=== PATIENT | female | born 1960 | race Caucasian/White ===

== ENCOUNTER 2019-05-04 12:19 | Observation (INO) | payer OTHER ==
[2019-05-04] MEDS ORDERED: Ondansetron INJ* 2 MG/ML VIAL IV ONE ×2 (13:15→16:42)
[2019-05-04] MEDS ORDERED: NS 0.9% 1000 ML** 1,000 ML IV ONE (13:15)
--- NOTE | 2019-05-04 13:16 | ED ---
Abdominal Pain/Female - HPI Summary HPI Summary: 59 year old F referred to [facility] by her primary care provider with a chief complaint of worsening RLQ abdominal pain radiating to her back rated 8/10 in severity that started at last evening. Symptoms aggravated by movement and position changes. Symptoms alleviated by nothing. Patient reports abdominal bloating and nausea since yesterday. No vomiting. Pt states mild back pain. Patient denies fever, dysuria, vaginal discharge, vaginal itching, vaginal odor. Patient has not treated the pain with any medication prior to arrival. Last normal bowel movement was yesterday. Patient states she has been doing a keto diet since the end of January 2019 with 19 pound weight loss. Patients medication reviewed this visit. Medications reviewed - History of Current Complaint Chief Complaint: EDAbdPain Stated Complaint: ABDOMINAL PAIN PER PT Time Seen by Provider: 05/04/19 12:31 Hx Obtained From: Patient Onset/Duration: Lasting Hours - 9, Still Present Timing: Constant Severity Currently: Moderate Pain Intensity: 8 Pain Scale Used: 0-10 Numeric Location: Discrete At: RLQ Radiates: Yes Radiates to: Back Aggravating Factor(s): Movement, Other: - position changes Alleviating Factor(s): Nothing Associated Signs and Symptoms: Positive: Negative - fever, dysuria, vaginal discharge, vaginal itching, vaginal odor, Other: - abdominal bloating and nausea Allergies/Adverse Reactions: Allergies Allergy/AdvReac Type Severity Reaction Status Date / Time oxycodone Allergy Nausea And Verified 05/04/19 12:27 Vomiting Penicillins Allergy Rash And Verified 05/04/19 12:27 Itching Sulfa (Sulfonamide Allergy Rash And Verified 05/04/19 12:27 Antibiotics) Itching sulfamethoxazole Allergy Rash And Verified 05/04/19 12:27 [From Bactrim] Itching Tetracyclines Allergy Rash And Verified 05/04/19 12:27 Itching trimethoprim [From Bactrim] Allergy Rash And Verified 05/04/19 12:27 Itching Home Medications: Home Medications Budesonide/Formote 80/4.5(NF) [Symbicort 80/4.5 (NF)] 2 puff INH BID 05/04/19 [ History Confirmed 05/04/19] PMH/Surg Hx/FS Hx/Imm Hx Previously Healthy: No - lung cancer, wedge resection, ptx, Endocrine/Hematology History: Reports: Hx Thyroid Disease - HYPERPARATHYROID DISEASE Denies: Hx Diabetes Cardiovascular History: Denies: Hx Hypertension Respiratory History: Reports: Hx Asthma - JUST DX LAST WEEK WITH COMPLIANCE COORDINATOR, Hx Chronic Obstructive Pulmonary Disease (COPD), Hx Lung Cancer, Other Respiratory Problems/Disorders - RIGHT UPPER LOBECTOMY 06/14/15 GI History: Reports: Hx Gastroesophageal Reflux Disease - WELL CONTROLLED, Other GI Disorders - INDIGESTION SINCE DX WITH CANCER History: Denies: Hx Dialysis, Hx Renal Disease Musculoskeletal History: Reports: Hx Arthritis - NECK AND KNEES, 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 tonsillectomy. right upper lobectomy 06/14 [facility] [place]. colonoscopy Hx Anesthesia Reactions: No Infectious Disease History: No Infectious Disease History: Denies: Hx Clostridium Difficile, Hx Hepatitis, Hx Human Immunodeficiency Virus (HIV), Hx of Known/Suspected MRSA, Hx Shingles, Hx Tuberculosis, Hx Known/ Suspected VRE, Hx Known/Suspected VRSA, History Other Infectious Disease, Traveled Outside the [place] in Last 30 Days - Family History Known Family History: Positive: Non-Contributory Family History: NEG: Breast cancer - Social History Alcohol Use: Rare Alcohol Amount: 2-3 GLASSES OF WINE PER YEAR Hx Substance Use: No Substance Use Type: Reports: None Hx Tobacco Use: Yes Smoking Status (MU): Former Smoker Type: Cigarettes Amount Used/How Often: 1/2 PPD- 1 PPD FOR 25 YRS Length of Time of Smoking/Using Tobacco: 25 YRS Have You Smoked in the Last Year: Yes Review of Systems Negative: Fever Positive: Abdominal Pain - RLQ, Nausea, Other - abdominal bloating Genitourinary: Negative - vaginal discharge, vaginal itching, vaginal odor. Negative: dysuria All Other Systems Reviewed And Are Negative: Yes Physical Exam - Summary Physical Exam Summary: Vital Signs Reviewed: Yes A+Ox3, mild discomfort with movement, chills, no fever Eyes: Conjunctiva Clear, BRENDEN. EOM intact and full ENT: Hearing grossly normal TM x 2 clear, mmoist, uvula midline, no exudate, no erythema Neck: Positive: Supple Respiratory: Positive: No respiratory distress, No accessory muscle use + CTA throughout no w/r Cardiovascular: RRR nl s1, s2 no m/r CBT <2 sec abd soft Decreased BS, no cva, + TTP RLQ + Rovsign's, Pain increased with SLE Musculoskeletal Exam: LAZO x 4 without difficulty Strength Intact, ROM Intact Neurological: Positive: Alert, + sensation throughout Psychological: Positive: Normal Response To financial business analyst Skin: Positive: no rash, no ecchymosis Triage Information Reviewed: Yes Vital Signs On Initial Exam: Initial Vitals Temp Pulse Resp BP Pulse Ox 98.8 F 87 18 105/83 96 05/04/19 12:21 05/04/19 12:21 05/04/19 12:21 05/04/19 12:21 05/04/19 12:21 Vital Signs Reviewed: Yes Diagnostics - Vital Signs Vital Signs Temp Pulse Resp BP Pulse Ox 05/04/19 12:21 98.8 F 87 18 105/83 96 - Laboratory Result Diagrams: 05/04/19 13:36 05/04/19 13:36 Lab Statement: Any lab studies that have been ordered have been reviewed, and results considered in the medical decision making process. - CT Abdomen/Pelvis CT Interpretation Completed By: Radiologist Summary of CT Findings: 1. Acute appendicitis without evidence for periappendiceal abscess. Results discussed with Dr. Garrett 05/04/2019 4:09 PM EDT. ED physician has reviewed this report. Re-Evaluation - Re-Evaluation First Eval Re-Evaluation Time: 13:55 Comment: updated on lab results. pt is less nauseous. pt is drinking contrast. will check temperature because pt feels chills - APAP prn Second Eval Re-Evaluation Time: 16:09 Comment: spoke with Dr. Mcbride about CT Abd/Pel. pt has acute appendicitis. will page sugery Third Eval Re-Evaluation Time: 16:15 Comment: discussed CT scans with her. pt aware of acute appendicitis. pt has taken Keflex in the past with no problems and no reactions - will Cefepime, Flagyl. pt requesting pain meds Abdominal Pain Fem Course/Dx - Course Course Of Treatment: Pt presents to with progressive RLQ pain x 36 hours + nausea, no fevers, + chills. VSS. RLQ pain with palp, + Rosvign's. Concern for appendicitis - will check labs, CT. Will give analgesia, antiemetics, IVF, reassess, labs - Diagnoses Provider Diagnoses: Acute appendicitis Discharge - Sign-Out/Discharge Documenting (check all that apply): Patient Departure - Admit All imaging exams completed and their final reports reviewed: Yes Patient Received Moderate/Deep Sedation with Procedure: No - Discharge Plan Condition: Good Disposition: ADMITTED TO [facility] - Billing Disposition and Condition Condition: GOOD Disposition: Admitted to [facility] - Attestation Statements Document Initiated by Mandiibe: Yes Documenting Scribe: Diane Thurston Provider For Whom Mandiibe is Documenting (Include Credential): Merle Garrett MD Scribe Attestation: Diane Butt, scribed for Merle Garrett MD on 05/06/19 at 1904. Scribe Documentation Reviewed: Yes Provider Attestation: The documentation as recorded by the Diane sawyer accurately reflects the service I personally performed and the decisions made by , Merle Garrett MD Status of Scribe Document: Viewed
[2019-05-04] MEDS ORDERED: Morphine 4 MG/ML VIAL (1 ml) 4 MG/ML VIAL IV ONE ×3 (13:18→18:24)
[2019-05-04] MEDS ORDERED: NS 0.9% 1000 ML** 1,000 ML IV SCH (13:30)
[2019-05-04 13:49] LABS: ABS Lymphocytes 1.6 10^3/ul (1.0-4.8); ABS Monocytes 0.8 10^3/ul (0-0.8); Eosinophil % 0.1 %; Hematocrit 43 % (35-47); Lymphocyte % 12.8 %; Mean Corpuscular HGB Conc 33 g/dL (31-36); Mean Corpuscular Hemoglobin 29 pg (27-31); Mean Corpuscular Volume 89 fL (80-97); Mean Platelet Volume 7.2 fL (7.4-10.4); Nucleated Red Blood Cells % 0.2; Platelet Count 236 10^3/uL (150-450); Red Blood Count 4.84 10^6 /uL (3.70-4.87); Red Cell Distribution Width 15 % (10-15); White Blood Count 12.4 10^3/uL (3.5-10.8)
[2019-05-04 14:06] LABS: Albumin 4.3 g/dL (3.2-5.2); Albumin/Globulin Ratio 1.7 (1-3); BUN/Creatinine Ratio 25.5 (8-20); Calcium 10.5 mg/dL (8.6-10.3); EGFR African American 73.5 (>60); EGFR Non-African American 60.7 (>60); Globulin 2.5 g/dL (2-4); Magnesium 1.8 mg/dL (1.9-2.7); Potassium 4.6 mmol/L (3.5-5.0); Total Bilirubin 0.3 mg/dL (0.2-1.0); Total Protein 6.8 g/dL (6.4-8.9)
[2019-05-04] MEDS ORDERED: Iohexol 300* (CONTRAST) 10 ML SDV IV ONE (14:13)
[2019-05-04 15:25] LABS: Urine Appearance Clear; Urine Bacteria 1+ (Absent); Urine Bilirubin Negative (Negative); Urine Blood 1+ (Negative); Urine Color Straw; Urine Glucose Negative (Negative); Urine Ketones Trace (Negative); Urine Nitrite Negative (Negative); Urine Protein Negative (Negative); Urine Red Blood Cell Trace(0-2/hpf) (Absent); Urine Specific Gravity 1.006 (1.010-1.030); Urine Squamous Epithelial Cell Present (Absent); Urine Urobilinogen Negative (Negative); Urine White Blood Cell 3+(>20/hpf) (Absent)
[2019-05-04] MEDS ORDERED: ceFAZolin 2 GM in NS PREMIX(*) 2 GM/100 ML BAG IVPB ONE (16:25)
[2019-05-04] MEDS ORDERED: metroNIDAZOLE IV 500 MG/100ML* 500 MG/100 ML BAG IVPB ONE (16:29)
[2019-05-04] MEDS ORDERED: Dexamethasone IV* 4 MG/ML 1 ML (4 MG) IV SLOW PU ONE (18:14)
[2019-05-04] MEDS ORDERED: Famotidine IV* 10 MG/ML 2 ML (20 mg) IV ONE (18:14)
[2019-05-04] MEDS ORDERED: Buffered Lidocaine 1% SYRIN* 1 ML/SYRINGE INTRADERM ONE (18:14)
[2019-05-04] MEDS ORDERED: DiMENhydriNATE IV* 50 MG/ML VIAL IV PUSH ONE (18:14)
[2019-05-04] MEDS ORDERED: PROCHLORPERAZINE INJ 5 MG/ML 2 ML VIAL IV PRN (18:17)
[2019-05-04] MEDS ORDERED: HYDROmorphone INJ1* 1 MG/ML SYRINGE IV PRN (18:17)
[2019-05-04] MEDS ORDERED: Naloxone* 0.4 MG/ML 1 ML VIAL IV PRN (18:17)
[2019-05-04] MEDS ORDERED: HYDROcodone/ACETAMIN 5-325 MG* 1 TAB PO PRN (18:17)
[2019-05-04] MEDS ORDERED: Scopolamine 1.5 mg* PATCH TRANSDERM PRN (18:17)
[2019-05-04] MEDS ORDERED: Lactated Ringers 1000 ML Bag* 1,000 ML IV SCH (19:00)
[2019-05-04] MEDS: Levalbuterol 0.63MG/3ML NEB* UNIT OF USE INH ONE ×2 (19:25→21:12)
--- NOTE | 2019-05-04 19:38 | HP ---
CC: Dr. Lubna Cortez, [facility] * ADMISSION HISTORY AND PHYSICAL: DATE OF ADMISSION: 05/04/19 ATTENDING SURGEON: Dr. Jose Enrique Gray.* (DICTATED BY TRE COLLADO) CHIEF COMPLAINT: Abdominal pain. HISTORY OF PRESENT ILLNESS: This is a 59-year-old female who beginning in the afternoon of 05/03/19 began to experience nausea. This progressed to widespread back and abdominal pain such that she was unable to get comfortable. She was up with the pain all night. It was accompanied by nausea and vomiting at home, but she has not had any vomiting today. She has not had any bowel changes. The baseline pain is steady, though she does have some colicky exacerbations which she relates to the upper abdomen. She does report feeling hot and chill but has not had a fever. She has not had any symptoms, i.e., increased frequency, dysuria, or hematuria. She has never had any similar symptoms. She has not had any prior abdominal surgeries. PAST MEDICAL HISTORY: COPD, lung cancer (status post right upper lobectomy 2014 ). She was also treated with chemotherapy. PAST SURGICAL HISTORY: Other surgeries include tubal ligation and bilateral eye amblyopia correction. No reported surgical or anesthesia complications. CURRENT MEDICATIONS: 1. Vitamin D 25,000 units once weekly. 2. Symbicort 80/4.5 two puffs b.i.d. DRUG ALLERGIES: OXYCODONE (nausea). PENICILLIN, SULFA, and TETRACYCLINE all cause rash and itchy, (she does tolerate Keflex). FAMILY HISTORY: Negative for anesthesia problems, bleeding, or clotting disorders. SOCIAL HISTORY: The patient lives with her father. She is not currently working. She quit smoking approximately 5 years ago. She drinks an average 2 drinks per week. REVIEW OF SYSTEMS: General: No recent constitutional symptoms or acute illnesses other than per the HPI. HEENT: No problems reported or additions to above. Cardiovascular: No chest pain, palpitations, history of heart murmur. Respiratory: COPD history and lung cancer history. No recent exacerbations of her COPD. Abdomen: Mildly distended. Bowel sounds are present and normoactive. Abdomen is soft and nontender with the exception of the right lower quadrant and right mid abdomen where she has moderately severe tenderness without guarding. No palpable masses or organomegaly. Genitalia/Rectal: Not done. Extremities: No edema. Neurological: Grossly intact. LABORATORY DATA: White blood cell count 12,400, hemoglobin 14. Differential is normal. Electrolytes, BUN, and creatinine are normal. Calcium is mildly elevated at 10.5 but is consistent with previous. Liver function tests are normal. Urinalysis is notable for 2+ leukocyte esterase, 1+ blood, and 3+ white blood cells. CT scan of the abdomen and pelvis with oral and IV contrast was personally reviewed showing multiple hepatic cysts, which are apparently unchanged from prior. Also noted is a 1 cm in diameter appendix with mild inflammatory periappendiceal stranding. There is no free air. No evidence of abscess. IMPRESSION: Most likely acute appendicitis. To be confirmed by Dr. Gray's exam. PLAN: Laparoscopic appendectomy pending Dr. Gray's review and exam. TRE COLLADO [id number]/[facility] #: [id number] [facility]PITAL[facility]
[2019-05-04] MEDS ORDERED: Levalbuterol 0.63MG/3ML NEB* UNIT OF USE INH ONE (20:47)
[2019-05-04] MEDS ORDERED: Scopolamine 1.5 mg* PATCH ONE (20:47)
[2019-05-04] MEDS ORDERED: Famotidine IV* 10 MG/ML 2 ML (20 mg) ONE (20:49)
[2019-05-04] MEDS ORDERED: Midazolam* 1 MG/ML 5 ML VIAL (5 MG) ONE (21:19)
[2019-05-04] MEDS ORDERED: fentaNYL* 50 MCG/ML 2 ML VIAL (100 MCG VIAL) ONE ×2 (21:19→23:48)
[2019-05-04] MEDS ORDERED: KETAMINE HCL* 50 MG/ML 10 ML VIAL ONE (21:19)
[2019-05-04] MEDS ORDERED: Clindamycin 900 MG/D5W BAG(*) 900 MG/50 ML BAG IVPB ONE (21:30)
[2019-05-04] MEDS ORDERED: Dexamethasone IV* 4 MG/ML 1 ML (4 MG) ONE (21:33)
[2019-05-04] MEDS ORDERED: Bupivacaine 0.25% W/EPI* 10 ML SDV ONE (21:50)
[2019-05-04] MEDS ORDERED: Ketorolac INJ* 30 MG/ML 1 ML VIAL ONE (23:08)
[2019-05-04] MEDS ORDERED: EPHEDrine (Pressors)* 50 MG/ML VIAL ONE (23:08)
[2019-05-04] MEDS ORDERED: Propofol* 10 MG/ML 20 ML BTL ONE (23:08)
[2019-05-04] MEDS ORDERED: Succinylcholine* 20 MG/ML 10 ML VIAL ONE (23:08)
[2019-05-04] MEDS ORDERED: Lidocaine 2% PF * 5 ML VIAL ONE (23:08)
[2019-05-04] MEDS ORDERED: Glycopyrrolate IV* 0.2 MG/ML 1 ML VIAL ONE (23:08)
[2019-05-04] MEDS ORDERED: Labetalol IV* 5 MG/ML 20 ML VIAL ONE (23:26)
--- NOTE | 2019-05-04 23:34 | OP ---
Operative Report - Blank - Operative Report Date of Operation: 05/04/19 Note: Pre-OP Diagnoses: acute appendicitis Post-op Diagnosis: same Procedure: Laparoscopic appendectomy Surgeon: Isaac Asst: none Anethesia: GETA EBL: minimal IVF: crystalloid Specimen: appendix Drains: none
[2019-05-04] MEDS: fentaNYL* 50 MCG/ML 2 ML VIAL (100 MCG VIAL) IV PRN ×3 (23:50→23:58)
[2019-05-05] MEDS: fentaNYL* 50 MCG/ML 2 ML VIAL (100 MCG VIAL) IV PRN (00:01)
--- NOTE | 2019-05-05 01:02 | OP ---
CC: Primary Care Doctor * DATE OF OPERATION: 05/03/19 - ROOM #350 DATE OF : 58 SURGEON: Jose Enrique Gray MD MANGLE ROLLER: None. ANESTHESIOLOGIST: Dr. Hess. ANESTHESIA: General. PRE-OP DIAGNOSIS: Acute appendicitis. POST-OP DIAGNOSIS: Acute appendicitis. OPERATIVE PROCEDURE: Laparoscopic appendectomy. ESTIMATED BLOOD LOSS: Minimal. FLUIDS: Crystalloid fluid given. SPECIMEN: Appendix. DRAINS: None. COMPLICATIONS: None. DESCRIPTION OF PROCEDURE: The patient was identified in the preoperative area. I met with her, discussed her case, and reviewed her chart. I discussed history and physical with partners. She was marked and a consent was signed after I outlined the details of the procedure of laparoscopic appendectomy, going over the risks, benefits, and alternatives. We spoke of the possible complications, which included not limited to bleeding, infection, bowel injury, injury to adjacent organs, and need for additional surgery, need for open procedure, and abscess formation. The patient was taken to the operating room, placed, placed on the operating table in supine position. Preoperative antibiotics were given. Sequential devices were placed in bilateral lower extremities. General anesthesia was induced. The patient's abdomen was prepped and draped in a standard surgical fashion and time- out was performed. An infra-umbilical incision was made. This was elevated and a Veress needle inserted into the abdominal cavity, which was then allowed to insufflate to a pressure of 15 mmHg. Veress needle was removed and a 12 mm optical trocar was inserted. The laparoscope was inserted. There was no evidence of injury from the trocar insertion. Review of the abdomen showed no enteric contents, no bleeding. A 5 mm trocar was placed in suprapubic area and a 5 mm in the left lower quadrant. Table was repositioned. Appendix was identified. This was clearly appendicitis with gangrenous changes. This was swept free from the small bowel and base of the appendix appeared intact and a window was made through this and a 45 mm grace SHANAE stapling device was fired through this. The mesoappendix was taken with a 45 mm suggs SHANAE stapling device. The appendix was placed in an endoscopic retrieval bag, brought out through the umbilical port site. Review of the abdomen showed no bleeding. Staple lines were intact. We then closed the umbilical fascia with 0 Vicryl suture using a VAC device. The abdomen was allowed to collapse. Trocars were removed and the additional trocars were removed, and the 5 mm trocars were closed with 4-0 Monocryl subcuticular sutures and the umbilical incision was closed with 3-0 chromic sutures. Sterile dressings were applied. [id number]/[facility] #: [id number] HEALTH SYSTEMNavdeep
[2019-05-05] MEDS ORDERED: Acetaminophen TAB* 325 MG PO PRN (01:41)
[2019-05-05] MEDS: Mometasone/Formoter 100/5 MDI INH SCH ×2 (02:00→08:36)
[2019-05-05] MEDS: Ibuprofen TAB* 400 MG PO PRN ×2 (06:34→12:35)
[2019-05-05 07:46] VITALS: BP 108/49
--- NOTE | 2019-05-05 13:33 | PN ---
Progress Note - Progress Note Date of Service: 05/05/19 Note: S: POD # 1/2. Had a fairly good night. Min pain. Cyndie po well. O: Vital Signs - 8 hr 05/05/19 05/05/19 05/05/19 06:15 07:44 08:00 Temperature 98.7 F 98.7 F Pulse Rate 58 54 Respiratory 18 16 16 Rate Blood Pressure 123/35 108/49 (mmHg) O2 Sat by Pulse 97 16 96 Oximetry 05/05/19 08:37 Temperature Pulse Rate 58 Respiratory 16 Rate Blood Pressure (mmHg) O2 Sat by Pulse 96 Oximetry Intake and Output Last 24 Hours 05/03/19 05/04/19 05/05/19 05/06/19 06:59 06:59 06:59 06:59 Intake Total 2150 1442 Output Total 550 0 Balance 1600 1442 Weight 210 lb Intake: IV Fluids 2000 661 CLINDAMYCIN 900MG 100ML 100 LR 1900 IVPB 661 LR 661 Oral 150 120 Output: Urine 500 0 Estimated Blood Loss 50 Gen: lying in bed; appears comfortable Heart: reg Lungs: clear Abd: lap sites clean and dry under tegaderm dsgs; soft; min tenderness to palp A: s/p lap appendectomy for acute appendicitis, doing well P: ready for d/c home; instructions reviewed
--- NOTE | 2019-05-05 13:51 | DS ---
CC: Dr. Lubna Cortez, [facility] * DISCHARGE SUMMARY: DATE OF ADMISSION: 05/04/19 DATE OF DISCHARGE: 05/05/19 ATTENDING SURGEON: Dr. Jose Enrique Gray.* (DICTATED BY TRE COLLADO) HOSPITAL COURSE: Please refer to admission history and physical and operative note for details. The patient was admitted through the ED with clinical and imaging evidence of acute appendicitis. She was taken to the operating room late in the evening of 05/04/19 with operative findings at that time consistent with acute appendicitis (gangrenous, not ruptured). Her surgery and postoperative course have been uneventful, see separate progress note from the same date. The patient has a followup in our office on 05/10/[address] Gray. She will resume her usual medications. A prescription was also to be filled by the [facility] outpatient pharmacy for Garber p.r.n. DISCHARGE CONDITION: She is discharged to home in good condition. TRE COLLADO [id number]/[facility] #: [id number] MTDD
--- NOTE | 2019-05-06 17:00 | HP ---
HISTORY AND PHYSICAL: ADDENDUM: REVIEW OF SYSTEMS: GI: As above per HPI. No additions. Colonoscopy performed 3 to 4 years ago [facility] patient states was normal. She also underwent EGD in 2015, which she states was normal. : No dysuria, increased frequency, or hematuria. DIGITAL COURT REPORTER: She is up-to-date within the past year for breasts and pelvic exams, both reportedly normal. Endocrine: No diabetes or thyroid dysfunction. PHYSICAL EXAMINATION GENERAL: Well-nourished mildly obese female in intermittent distress from colicky upper abdominal pa in, in between spasms pain, she appears comfortable. VITAL SIGNS: Height 5 feet 4 inches, weight 210 pounds, BMI 36, temperature 98.8. Blood pressure 105 /83, pulse 87, respirations 18, room air saturation 96%. SKIN: Warm and dry. No suspicious rashes or lesions. HEENT: Pupils equal and round, reactive. EOMs intact. No conjunctival pallor or scleral icterus. Oropharynx: Teeth in good repair. No intraoral lesions. NECK: No lymphadenopathy, thyromegaly or masses. HEART: Regular rate and rhythm. No murmur noted. LUNGS: Clear to auscultation. No rales or wheezes. TRE COLLADO [id number]/[facility] #: [id number]
[2019-05-07] MEDS ORDERED: Scopolamine PATCH Remove* 1 NOTE MISC PATCH OFF ONE (18:17)
== END 2019-05-05 12:47 | disposition home or self-care (01) ==
LOC: ED 12:19 → OR 17:40 → SSU 18:24
PROVIDERS: ADMIT Surgery; ATTEND Surgery
DX: K35.80 Unspecified acute appendicitis (principal); J44.9 Chronic obstructive pulmonary disease, unspecified; Z85.118 Personal history of other malignant neoplasm of bronchus and lung; Z92.21 Personal history of antineoplastic chemotherapy; Z87.891 Personal history of nicotine dependence; Z88.0 Allergy status to penicillin; Z88.2 Allergy status to sulfonamides; Z79.899 Other long term (current) drug therapy; Z90.2 Acquired absence of lung [part of]
CPT/HCPCS: 36415; 74177; 80053; 81003; 81015; 83605; 83735; 84484; 85025; 87086; 88304; 94640; 96361; 96374; 96375; 96376; 99283; A9270-GY; C1776; G0378; J0330; J0690; J1100; J1885; J2250; J2270; J2405; J2704; J3010; Q9967